=== PATIENT | female | born 1975 | race Caucasian/White ===

== ENCOUNTER 2017-12-26 15:02 | Emergency (ER) | payer SELFPAY ==
--- NOTE | 2017-12-26 15:02 | DT_ITS ---
This patient was seen during an EMR downtime December 22, 2017 - December 29, 2017. This patient may have a combination of paper and electronic documentation or all paper documentation. All documentation is viewable within the e-chart portion of [facility] for each patient visit.
[2017-12-29 09:10] LABS: Mucous, Urine 0 SEEN /hpf (<or=2+)
[2017-12-29 09:18] LABS: Bacteria 3+ /hpf (None Seen); Color, Urine Yellow (Yellow); Glucose, Dipstick NEGATIVE (Normal); Ketone-Dipstick Negative (Negative); Leukocyte Esterase-Dipstick 500 /ul (Negative); Nitrite-Dipstick Positive (Negative); Occult Blood-Urine 10 /ul (Negative); Protein-Dipstick 15 mg/dl (Negative); Red Blood Cells-Urine 0-5 SEEN /hpf (0-5); Squamous Epithelial Cells - UA 5-10 SEEN /hpf (5-10); Urine Bilirubin Dipstick Negative (Negative); Urine Clarity Sl Cldy (Clear); Urine Urobilinogen Normal (Normal); White Blood Cells 25-50 SEEN /hpf (0-5)
[2017-12-29 11:02] LABS: Hematocrit 37.8 % (37-47); Hemoglobin 12.3 g/dl (12.0-15.0); Mean Corp Hgb Conc 32.5 g/gl (32-36); Mean Corpuscular Hgb 30.3 pg (27.0-32.0); Mean Corpuscular Volume 93.1 fL (81-99); Red Blood Count 4.06 M/mm3 (4.2-5.4); White Blood Count 4.3 K/mm3 (4.4-11.0)
[2017-12-29 11:03] LABS: Absolute Neutrophil Count 2.5 X10^3/uL (2.0-7.7); Basophil# 0.02 X10^3/uL; Basophil% 0.5 % (0-1); Eosinophil# 0.14 X10^3/uL; Eosinophils% 3.3 % (0-5); Lymphocyte % 28.2 % (19-41); Monocyte# 0.38 X10^3/uL; Monocyte% 8.9 % (0-10); Neutrophil # 2.48 X10^3/uL (2.7-7.7); Neutrophil % 58.2 % (47-70); POSITIVE COUNT NO; POSITIVE DIFFERENTIAL NO; POSITIVE MORPHOLOGY NO; Platelet Count 251 K/mm3 (150-450); RBC Distribution Width CV 13.8 % (11.6-14.6); RBC Distribution Width SD 47.2 fl (35.1-43.9)
[2017-12-29 21:36] LABS: Glucose 87 mg/dL (74-106); Lactic Acid 1.8 mmol/L (0.4-2.0)
[2017-12-29 21:37] LABS: Anion Gap 6 (5-15); BUN 7 mg/dL (7-18); BUN/Creat Ratio 10.6 RATIO (10-20); Chloride 110 mmol/L (98-107); Creatinine, Serum 0.66 mg/dL (0.55-1.02); EST Glomerular Filtration Rate 104 mL/min (>60); Est Glom Filt Rate - Afr Amer 126 mL/min (>60); Potassium 4.6 mmol/L (3.5-5.1); Sodium Level 142 mmol/L (136-145)
== END 2017-12-26 17:50 | disposition home or self-care (01) ==
LOC: ED 12-27 10:45
PROVIDERS: Emergency Provider Emergency Medicine; Family Provider Internal Medicine; PCP Internal Medicine
DX: N39.0 Urinary tract infection, site not specified (principal); N31.9 Neuromuscular dysfunction of bladder, unspecified; Z87.442 Personal history of urinary calculi; Z79.899 Other long term (current) drug therapy; Z72.0 Tobacco use
CPT/HCPCS: 80048; 81001; 83605; 85025; 87077; 87086; 87088; 87186; 96361; 96365; 96375; 99284; J7030; A4216; J2405

== ENCOUNTER 2018-04-26 13:02 | Emergency (ER) | payer MEDICAID, SELFPAY ==
[2018-04-26 13:03] VITALS: BP 158/98; PULSE 109; RESP 17; TEMP 36.7; O2SAT 100; BMI 25.2
[2018-04-26] MEDS: proMETHazine 25 MG/ML Syringe 6.25 MG IV (13:34)
[2018-04-26] MEDS: 0.9% Normal Saline 1,000 ML 1000 ML IV (13:34)
[2018-04-26 13:39] LABS: Mucous, Urine 0 SEEN /hpf (<or=2+); Red Blood Cells-Urine 0 SEEN /hpf (0-5)
[2018-04-26 13:45] LABS: Color, Urine Yellow (Yellow); Glucose, Dipstick Normal (Normal); Ketone-Dipstick Negative (Negative); Leukocyte Esterase-Dipstick 500 /ul (Negative); Nitrite-Dipstick Positive (Negative); Occult Blood-Urine 25 /ul (Negative); Protein-Dipstick Negative (Negative); Specific Gravity, Urine 1.015 (1.002-1.030); Urine Bilirubin Dipstick Negative (Negative); Urine Clarity Cloudy (Clear); Urine Urobilinogen Normal (Normal)
[2018-04-26 13:46] LABS: Absolute Neutrophil Count 4.2 X10^3/uL (2.0-7.7); Basophil# 0.04 X10^3/uL; Basophil% 0.6 % (0-1); Eosinophil# 0.05 X10^3/uL; Eosinophils% 0.8 % (0-5); Hematocrit 45.2 % (37-47); Hemoglobin 15.5 g/dl (12.0-15.0); Lymphocyte % 26.6 % (19-41); Mean Corp Hgb Conc 34.3 g/gl (32-36); Mean Corpuscular Hgb 31.4 pg (27.0-32.0); Mean Corpuscular Volume 91.5 fL (81-99); Mean Platelet Vol. 10.6 fl (6.2-12.0); Monocyte# 0.41 X10^3/uL; Monocyte% 6.4 % (0-10); Neutrophil # 4.18 X10^3/uL (2.7-7.7); Neutrophil % 65.4 % (47-70); POSITIVE COUNT NO; POSITIVE DIFFERENTIAL NO; POSITIVE MORPHOLOGY NO; Platelet Count 270 K/mm3 (150-450); RBC Distribution Width CV 13.3 % (11.6-14.6); Red Blood Count 4.94 M/mm3 (4.2-5.4); White Blood Count 6.4 K/mm3 (4.4-11.0)
[2018-04-26 14:04] LABS: Bacteria 4+ /hpf (None Seen); Squamous Epithelial Cells - UA 0-5 SEEN /hpf (5-10); White Blood Cells 10-25 SEEN /hpf (0-5)
[2018-04-26 14:06] LABS: Anion Gap 11 (5-15); BUN 6 mg/dL (7-18); BUN/Creat Ratio 6.9 RATIO (10-20); Calcium,Total 9.5 mg/dL (8.5-10.1); Chloride 107 mmol/L (98-107); Creatinine, Serum 0.87 mg/dL (0.55-1.02); EST Glomerular Filtration Rate 75 mL/min (>60); Est Glom Filt Rate - Afr Amer 91 mL/min (>60); Estimated Creatinine Clearance 77.25 ml/min; Glucose 102 mg/dL (74-106); Potassium 3.8 mmol/L (3.5-5.1); Sodium Level 141 mmol/L (136-145)
[2018-04-26 14:10] LABS: Lactic Acid 1.7 mmol/L (0.4-2.0)
--- NOTE | 2018-04-26 14:18 | ED.DCSUM_ITS ---
- ER Visit Summary Date of Service: 04/26/18 Chief Complaint: UTI symptoms History of Present Illness: The patient is a 43 F who presents with symptoms of UTI. 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 She self catheterizes. Over the last 3 days she complains of lower abdominal and bilateral flank pain and sweats. She reports nausea and vomiting since last night. She states this feels similar to prior UTIs. She notes that she was treated for UTI in February and seem to be improving but now has recurrent symptoms. Physical Examination: Afebrile initial heart rate 109 vitals otherwise normal Moist mucous members Heart regular rhythm tachycardia Lungs clear Abdomen soft nondistended she does have some suprapubic abdominal tenderness Test Results: CBC BMP normal. Urinalysis shows 500 leukocyte esterase, positive nitrates, 10-25 WBCs with 4+ bacteria. Lactic acid is normal. A urine culture was also sent. Emergency Department Course and Treatment: Patient was treated with IV fluids and Phenergan. She has no fever or leukocytosis or lactic acidosis. I do believe she can be treated as an outpatient. She was given prescriptions for Phenergan and Cipro. She understands to return for new or worsening symptoms and was instructed on specific signs and symptoms to monitor for. She will follow-up as an outpatient. Treatment Plan: [] Disposition: Discharge Impression: UTI This note was generated with [employer] dictation software. It may contain incorrect words, spelling, and punctuation that were not noted in review of the chart prior to signing ED Disposition - Plan for ED Patient: Chief Complaint: Complaint Referrals: Octavia Campbell DO [Primary Care Provider] -
--- NOTE | 2018-04-26 14:18 | ED.DEP ---
ED Disposition - Plan for ED Patient: Chief Complaint: Complaint Instructions: ED UTI Cystitis Female Prescriptions: proMETHazine tablet [Phenergan] 25 mg PO Q6H PRN PRN #10 tab PRN Reason: Nausea Ciprofloxacin [Cipro] 500 mg PO BID #14 tab Referrals: Octavia Campbell DO [Primary Care Provider] -
[2018-04-26 14:25] VITALS: RESP 14
== END 2018-04-26 14:26 | disposition home or self-care (01) ==
LOC: ED 13:17
PROVIDERS: Emergency Provider Emergency Medicine
DX: N39.0 Urinary tract infection, site not specified (principal); Q62.5 Duplication of ureter; N31.9 Neuromuscular dysfunction of bladder, unspecified; N13.70 Vesicoureteral-reflux, unspecified; F31.9 Bipolar disorder, unspecified; F41.9 Anxiety disorder, unspecified; Z72.0 Tobacco use; Z79.899 Other long term (current) drug therapy; Z87.440 Personal history of urinary (tract) infections
CPT/HCPCS: 80048; 81001; 83605; 85025; 87077; 87086; 87088; 87186; 96361; 96374; 99283; J7030

== ENCOUNTER 2018-05-06 13:31 | Emergency (ER) | payer MEDICAID, SELFPAY ==
[2018-05-06 13:32] VITALS: BP 154/77; PULSE 111; RESP 16; TEMP 36.4; O2SAT 99; BMI 24.8
[2018-05-06 13:49] LABS: Mucous, Urine 0 SEEN /hpf (<or=2+); White Blood Cells 0 SEEN /hpf (0-5)
[2018-05-06 14:04] LABS: Internal QC Validated? YES +Cl - CLEAR BKGD; Pregnancy, Urine Negative Negative
[2018-05-06] MEDS: Phenazopyridine 95 MG Tablet 190 MG PO (14:11)
[2018-05-06] MEDS: Amox/Clavulanate 875 MG Tablet PO (14:11)
[2018-05-06 14:14] LABS: Color, Urine Yellow (Yellow); Glucose, Dipstick Normal (Normal); Ketone-Dipstick Negative (Negative); Leukocyte Esterase-Dipstick Negative /ul (Negative); Nitrite-Dipstick Positive (Negative); Occult Blood-Urine 10 /ul (Negative); Protein-Dipstick Negative (Negative); Urine Bilirubin Dipstick Negative (Negative); Urine Clarity Sl. Cloudy (Clear); Urine Urobilinogen Normal (Normal)
[2018-05-06 14:19] LABS: Red Blood Cells-Urine 0-5 SEEN /hpf (0-5); Squamous Epithelial Cells - UA 0-5 SEEN /hpf (5-10)
--- NOTE | 2018-05-06 14:19 | ED.DCSUM_ITS ---
- ER Visit Summary Date of Service: 05/06/18 Chief Complaint: [] Frequent urination and dysuria History of Present Illness: The patient is a 43 F [] she reports that for days that she has had frequent urination and dysuria, she indicates she has history of neurogenic bladder for unspecified reasons, she has a history of self- catheterization, she is been seen by [facility] urology the exact etiology of the above was unclear. Indicates she indicates because of the above she gets frequent UTIs she indicates she feels that she had a UTI for the last 2 weeks she is recently started on Cipro by outpatient providers that partially improved her symptoms symptoms, than the Cipro concluded and now she is having again frequency and burning with urination and or straight cath she has had no fever no vomiting normal bowel habits no numbness 6 paresthesias no other complaints, she indicates she is planning on seeing the [facility] urology team possible for further management Physical Examination: [] No distress her vital signs are unremarkable she is complaining of superpubic pressure head neck chest unremarkable the abdomen soft there is a vague discomfort to the suprapubic area no rebound or guarding the backs unremarkable upper lower extremities unremarkable neurologically she is in no distress resting comforting the bed but again complaining of constant pressure in her superpubic region Test Results: [] Emergency Department Course and Treatment: [] Patient self caths she indicates she is draining her bladder she indicates she occasionally experience his bladder spasm, her UA does show positivity for nitrites, we did start her on Augmentin and Pyridium which is helped in the past she feels comfortable outpatient management urine culture was sent and she has appointments to see her [facility] urologist in the next few days she is comfort with discharge plan and return for change in symptoms Treatment Plan: [] Disposition: [] Home stable Impression: [] Urinary tract infection history of same with a neorogenic bladder This note was generated with [employer] dictation software. It may contain incorrect words, spelling, and punctuation that were not noted in review of the chart prior to signing ED Disposition - Plan for ED Patient: Chief Complaint: Complaint Referrals: Octavia Campbell DO [Primary Care Provider] -
[2018-05-06 14:20] LABS: Bacteria 2+ /hpf (None Seen)
--- NOTE | 2018-05-06 14:37 | ED.DEP ---
ED Disposition - Plan for ED Patient: Chief Complaint: Complaint Instructions: ED UTI Cystitis Female Prescriptions: Amox/Clavulanate Tablet [Augmentin Tablet] 875 mg PO Q12H #20 tab Phenazopyridine HCl [Pyridium] 200 mg PO BID PRN PRN #10 tab PRN Reason: Pain Referrals: Octavia Campbell DO [Primary Care Provider] -
[2018-05-06] MEDS: HYDROcodone Bitartrate/Apap 5/325 Tablet PO (14:59)
[2018-05-06 15:00] VITALS: RESP 16
--- NOTE | 2018-05-06 15:01 | ED.RN ---
REVIEWED D/C INSTRUCTIONS, FOLLOW UP CARE, PRESCRIPTIONS, AND S/S THAT WOULD WARRANT A RETURN TO THE ED WITH PT. PT VERBALIZED AN UNDERSTANDING AND DENIES FURTHER QUESTIONS FOR THIS RN. PT SKIN P/W/D, RESP EVEN AND UNLABORED, PT A&O X 3, NO DISTRESS NOTED. PT AMBULATED OUT OF ED, GAIT STEADY.
== END 2018-05-06 15:02 | disposition home or self-care (01) ==
LOC: ED 14:06
PROVIDERS: Emergency Provider Emergency Medicine
DX: N39.0 Urinary tract infection, site not specified (principal); N31.9 Neuromuscular dysfunction of bladder, unspecified; Z79.899 Other long term (current) drug therapy; Z87.440 Personal history of urinary (tract) infections
CPT/HCPCS: 81001; 81025; 87086; 87088; 87186; 99283